=== PATIENT | female | born 1970 | race Asian ===

== ENCOUNTER → 2018-10-31 | Outpatient (CLI) | payer BC | LOC: RAD 10:45 | DX: Z12.31 Encounter for screening mammogram for malignant neoplasm of breast (principal) ==

== ENCOUNTER → 2018-11-13 | Outpatient (CLI) | payer BC | LOC: ULTRA 15:08 | DX: N94.12 Deep dyspareunia (principal); Z90.721 Acquired absence of ovaries, unilateral ==